=== PATIENT | female | born 1985 | race Caucasian/White ===

== ENCOUNTER 2021-05-25 09:22 | Day surgery (SDC) | payer MEDICAID, OTHER ==
[2021-05-25 10:39] VITALS: BMI 29.2
[2021-05-25] MEDS ORDERED: hydrALAZINE 20 MG/ML VIAL SLOW IVP PRN (10:55)
[2021-05-25 10:57] LABS: Fetal Membranes Rupture No Membranes Rupture (No Rupture)
== END 2021-05-25 13:10 | disposition home or self-care (01) ==
LOC: CSHLD/OP 09:22
PROVIDERS: ATTEND Obstetrics & Gynecology
DX: O99.891 Other specified diseases and conditions complicating pregnancy (principal); N89.8 Other specified noninflammatory disorders of vagina; M54.9 Dorsalgia, unspecified; R10.30 Lower abdominal pain, unspecified; Q79.60 Ehlers-Danlos syndrome, unspecified; O09.213 Supervision of pregnancy with history of pre-term labor, third trimester; O99.613 Diseases of the digestive system complicating pregnancy, third trimester; K21.9 Gastro-esophageal reflux disease without esophagitis; O09.523 Supervision of elderly multigravida, third trimester; Z3A.37 37 weeks gestation of pregnancy; Z88.0 Allergy status to penicillin; Z88.8 Allergy status to other drugs, medicaments and biological substances; Z91.040 Latex allergy status
CPT/HCPCS: 84112; 87480; 87510; 87660; 99284

== ENCOUNTER 2021-06-01 19:45 | Inpatient (IN) | payer OTHER ==
[~2021-06-01 19:45] MED LIST: Bupivacaine 0.25% HCL 30 ML VIAL ONE
[2021-06-01] MEDS ORDERED: Ondansetron PF 4 MG/2 ML Vial IVP PRN (20:04)
[2021-06-01] MEDS ORDERED: Methylergonovine 0.2 MG/ML VIAL IM PRN (20:04)
[2021-06-01] MEDS ORDERED: hydrALAZINE 20 MG/ML VIAL SLOW IVP PRN (20:04)
[2021-06-01] MEDS ORDERED: Butorphanol Tartrate 1 MG/ML VIAL SLOW IVP PRN (20:04)
[2021-06-01] MEDS ORDERED: Promethazine HCl 25 MG/ML VIAL IM PRN (20:04)
[2021-06-01] MEDS ORDERED: Misoprostol 200 MCG TAB PR PRN (20:04)
[2021-06-01] MEDS ORDERED: Lidocaine 1% (PF) 30 ML VIAL SC PRN (20:04)
[2021-06-01] MEDS ORDERED: Lactated Ringer's 1,000 ML IV SCH (20:15)
[2021-06-01 23:14] LABS: Hemoglobin 12.9 g/dL (12.0-15.5); Mean Corpuscular HGB CONC 32.7 g/dL (32.0-36.0); Mean Corpuscular Volume 79.6 fl (81.6-98.3); Mean Platelet Volume 11.8 fl (7.4-10.4); Platelet Count 235 10x3/uL (150-450); RBC Distribution Width 16.3 % (11.5-14.5); Red Blood Cell (RBC) Count 4.96 10x6/uL (3.90-5.03); White Blood Cell (WBC) Count 11.9 10x3/uL (3.5-10.5)
[2021-06-01 23:46] LABS: Hep B Surf Ag Non-Reactive S/CO (NonReactive); Syphilis Antibody Nonreactive (Nonreactive); Syphilis Antibody Index 0.03 S/CO (<1.00 Non-Reactive)
[2021-06-01 23:49] LABS: HBSAg Index 0.19 S/CO (0-0.99)
[2021-06-02 00:37] VITALS: BMI 29.2
[2021-06-02 00:47] LABS: SARS-CoV-2 NAA Rapid Test DETECTED (NotDetected)
[2021-06-02] MEDS ORDERED: Fentanyl 2 mcg/Bup 0.1% Cadd 100 ML ONE (06:04)
[2021-06-02] MEDS: Fentanyl 2 mcg/Bupivacaine 0.1% Cassette 100 ML EPIDURAL SCH ×2 (07:30→14:11)
[2021-06-02] MEDS ORDERED: Naloxone HCl 0.4 mg/ml Vial IVP PRN ×2 (07:41)
[2021-06-02] MEDS ORDERED: ePHEDrine Sulfate 50 MG/10 ML VIAL SLOW IVP PRN (07:41)
[2021-06-02] MEDS ORDERED: Ondansetron PF 4 MG/2 ML Vial IVP PRN (07:41)
[2021-06-02] MEDS ORDERED: Lactated Ringer's 500 ML IV PRN (07:41)
[2021-06-02] MEDS ORDERED: Promethazine HCl 25 MG/ML VIAL IM PRN (07:41)
[2021-06-02] MEDS ORDERED: Hydrocerin (Eucerin) Cream 120 gm Jar TOP PRN (07:41)
[2021-06-02] MEDS ORDERED: diphenhydrAMINE 50 MG/ML VIAL IVP PRN (07:41)
[2021-06-02] MEDS ORDERED: Acetaminophen 325 MG TAB PO PRN (07:41)
[2021-06-02] MEDS ORDERED: Communication Order-Pharmacy FS PRN (07:45)
[2021-06-02] MEDS ORDERED: Carboprost 250 MCG/ML AMP ONE (09:16)
[2021-06-02] MEDS: NS w/ Oxytocin 30 units 500 ML IV SCH ×2 (09:21→16:30)
[2021-06-02] MEDS ORDERED: Famotidine/PF 20 mg/2ml Vial SLOW IVP SCH (13:14)
[2021-06-02] MEDS ORDERED: Bicitra 30 ML UDCUP PO SCH (13:14)
[2021-06-02] MEDS ORDERED: Bicitra 30 ML UDCUP ONE (14:25)
[2021-06-02] MEDS ORDERED: Ibuprofen 800 MG TAB PO SCH (16:15)
[2021-06-03] MEDS ORDERED: Bisacodyl 10 MG SUPP PR PRN (00:20)
[2021-06-03] MEDS ORDERED: Boostrix 0.5 ML (Tdap) VIAL IM ONE (00:20)
[2021-06-03] MEDS ORDERED: Benzocaine-Menthol 82.5 ML CAN TOP PRN (00:20)
[2021-06-03] MEDS ORDERED: Lanolin Ointment 7 GM TUBE TOP PRN (00:20)
[2021-06-03] MEDS ORDERED: hydrALAZINE 20 MG/ML VIAL SLOW IVP PRN (00:20)
[2021-06-03] MEDS ORDERED: HYDROcodone/Acetaminophen 5/325 mg Tablet PO PRN ×2 (00:20)
[2021-06-03] MEDS ORDERED: Methylergonovine 0.2 MG/ML VIAL IM PRN (00:20)
[2021-06-03] MEDS ORDERED: Milk Of Magnesia 30 ML UDCUP PO PRN (00:20)
[2021-06-03] MEDS ORDERED: NS w/ Oxytocin 30 units 500 ML IV SCH (01:00)
[2021-06-03] MEDS: Ibuprofen 800 MG TAB PO SCH ×2 (05:15→14:15)
[2021-06-03] MEDS ORDERED: Prenatal Vitamin 1 TAB PO SCH (09:00)
[2021-06-03] MEDS ORDERED: Ibuprofen 800 MG TAB PO SCH (15:30)
[2021-06-03 17:18] VITALS: BP 112/53; TEMP 98
[2021-06-04] MEDS ORDERED: Ferrous Sulfate 325 MG TAB PO SCH (08:00)
[2021-06-04] MEDS ORDERED: Docusate 100 MG CAP PO SCH (09:00)
== END 2021-06-03 18:30 | disposition home or self-care (01) | DRG 805 ==
LOC: CSHLD/OP 19:45 → CSHLD 22:59 → CSHANTE 06-02 22:17
PROVIDERS: ADMIT Obstetrics & Gynecology; ATTEND Obstetrics & Gynecology
PROC: 10E0XZZ Delivery of Products of Conception, External Approach (ICD-10-PCS; principal; 2021-06-02)
PROC: 10907ZC Drainage of Amniotic Fluid, Therapeutic from Products of Conception, Via Natural or Artificial Opening (ICD-10-PCS; 2021-06-02)
DX: O99.02 Anemia complicating childbirth (principal); U07.1 COVID-19; Z37.0 Single live birth; O98.52 Other viral diseases complicating childbirth; O99.62 Diseases of the digestive system complicating childbirth; Z3A.38 38 weeks gestation of pregnancy; K21.9 Gastro-esophageal reflux disease without esophagitis; O99.52 Diseases of the respiratory system complicating childbirth; O32.6XX0 Maternal care for compound presentation, not applicable or unspecified; O69.89X0 Labor and delivery complicated by other cord complications, not applicable or unspecified; D64.9 Anemia, unspecified; J45.909 Unspecified asthma, uncomplicated; M19.90 Unspecified osteoarthritis, unspecified site; O99.892 Other specified diseases and conditions complicating childbirth; Z90.49 Acquired absence of other specified parts of digestive tract; Z91.040 Latex allergy status; Z88.8 Allergy status to other drugs, medicaments and biological substances; Z88.2 Allergy status to sulfonamides
CPT/HCPCS: 36415; 51702; 85027; 86780; 86850; 86900; 86901; 87340; 99285; J0595; J2210; J2405; J2590; S0020; S0028; U0002